=== PATIENT | male | born 1990 | race Caucasian/White ===

== ENCOUNTER 2024-07-29 14:23 | Emergency (ER) | payer MEDICAID ==
[~2024-07-29] VITALS: Ht 182.9 cm; Wt 78.5 kg
--- NOTE | 2024-07-29 14:42 | ED.PDOC ---
HPI Comments 34 y.o male presents to the ED for a chief complaint of left sided chest pain radiating to his back that started 2 hours prior to arrival. Patient describes pain as sharp, constant, and rating a 3/10 on the pain scale. Patient denies any cardiac history, SOB, nausea, vomiting, diarrhea, abdominal pain, fever, or chills. Patient admits to using cocaine and marijuana one week ago. Additional, patient reports occasional use of alcohol and tobacco. Time Seen by MD: 14:30 Primary Care Provider: NONE Reviewed Notes: Nurses Notes, Medications, Allergies Allergies: Coded Allergies: NO KNOWN ALLERGIES (Unverified , 11/18/14) Information Source: Patient Mode of Arrival: Ambulatory Severity: Moderate Timing: Hours (2) Duration: Since onset Location: Chest (L) Radiation: Back Quality: Sharp Onset: At Rest Cardiac Risk Factors: Drugs PE Risk Factors: None History of: None Modifying Factors: Nothing Associated Signs and Symptoms: Back Pain Past Medical History PAST MEDICAL HISTORY: Denies Surgical History: Denies all surgeries Family History Family History: Unknown Social History Smoker: Cigarettes Alcohol: Occasionally Drugs: Cocaine, Marijuana Constitutional: denies: chills, diaphoresis, fatigue, fever, malaise, sweats, weakness, others EENTM: denies: blurred vision, double vision, ear bleeding, ear discharge, ear drainage, ear pain, ear ringing, eye pain, eye redness, hearing loss, mouth pain, mouth swelling, nasal discharge, nose bleeding, nose congestion, nose pain, photophobia, tearing, throat pain, throat swelling, voice changes, others Respiratory: denies: cough, hemoptysis, orthopnea, SOB at rest, shortness of breath, SOB with excertion, stridor, wheezing, others Cardiovascular: reports: chest pain; denies: dizzy spells, diaphoresis, Dyspnea on exertion, edema, irregular heart beat, left arm pain, lightheadedness, palpitations, PND, syncope, others Gastrointestinal: denies: abdomen distended, abdominal pain, blood streaked bowels, constipated, diarrhea, dysphagia, difficulty swallowing, hematemesis, melena, nausea, poor appetite, poor fluid intake, rectal bleeding, rectal pain, vomiting, others Genitourinary: denies: burning, dysuria, flank pain, frequency, hematuria, inco ntinence, penile discharge, penile sore, pain, testicle pain, testicle swelling, urgency, others Neurological: denies: dizziness, fainting, headache, left sided numbness, left sided weakness, numbness, paresthesia, pre-existing deficit, right sided numbness, right sided weakness, seizure, speech problems, tingling, tremors, weakness, others Musculoskeletal: reports: back pain; denies: gout, joint pain, joint swelling, muscle pain, muscle stiffness, neck pain, others Integumetry: denies: bruises, change in color, change in hair/nails, dryness, laceration, lesions, lumps, rash, wounds, others Allergic/Immunocompromised: denies: Difficulty Healing, Frequent Infections, Hives, Itching, others Hematologic/Lymphatic: denies: anemia, blood clots, easy bleeding, easy bruising, swollen glands, others Endocrine: denies: excessive hunger, excessive sweating, excessive thirst, excessive urination, flushing, intolerance to cold, intolerance to heat, unexplained weight gain, unexplained weight loss, others Psychiatric: denies: anxiety, bipolar disorder, depression, hopeless, panic disorder, schizophrenia, sleepless, suicidal, others All Other Systems: Reviewed and Negative Physical Exam General Appearance: No Apparent Distress HEENT: Normal ENT Inspection, Pharynx Normal, TMs Normal Neck: Full Range of Motion, Non-Tender, Normal, Normal Inspection Respiratory: Chest Non-Tender, Lungs Clear, No Accessory Muscle Use, No Respiratory Distress, Normal Breath Sounds Cardiovascular: No Edema, No JVD, No Murmur, No Gallop, Tachycardia Breast Exam: Deferred Gastrointestinal: No Organomegaly, Non Tender, No Pulsatile Mass, Normal Bowel Sounds, Soft Genitalia: Deferred Pelvic: Deferred Rectal: Deferred Extremities: No calf tenderness, Normal capillary refill, Normal inspection, Normal range of motion, Non-tender, No pedal edema Musculoskeletal : Apperance: Normal Neurologic: Alert, medical library assistant II-XII nml as Tested, No Motor Deficits, Normal Affect, Normal Mood, No Sensory Deficits Cerebellar Function: Normal Reflexes: Normal Skin: Dry, Normal Color, Warm Lymphatic: No Adenopathy EKG EKG : Pulse Rate (adult): 101 Cardiac Rhythm: ST Was a procedure done? Was a procedure done?: No CP Differential Dx Differential Diagnosis: Pulmonary Embolus Differential Diagnosis: Angina, Chest Wall Pain, Cholelithiasis, Gastritis, Pericarditis X-Ray, Labs, Meds, VS Vital Signs Date Time Temp Pulse Resp B/P (MAP) Pulse Ox O2 Delivery O2 Flow Rate FiO2 07/29/24 15:01 98.1 96 20 130/79 (96) 98 07/29/24 15:01 98.1 96 20 130/79 (96) 98 98.1 07/29/24 14:42 101 Lab Test 07/29/24 14:38 Range/Units White Blood Count 12.5 H 4.4-10.8 10^3/uL Red Blood Count 4.48 L 4.5-5.90 10^6/uL Hemoglobin 15.6 13.5-17.5 g/dL Hematocrit 44.3 41.0-53.0 % Mean Corpuscular Volume 99.0 80.0-100.0 fL Mean Corpuscular Hemoglobin 34.7 H 28.0-32.0 pg Mean Corpuscular Hemoglobin Concent 35.1 32.0-36.0 g/dL Red Cell Distribution Width 13.5 11.8-14.3 % Platelet Count 192 140-450 10^3/uL Mean Platelet Volume 9.0 6.9-10.8 fL Neutrophils (%) (Auto) 84.1 H 37.0-80.0 % Lymphocytes (%) (Auto) 12.4 10.0-50.0 % Monocytes (%) (Auto) 2.8 0.0-12.0 % Eosinophils (%) (Auto) 0.3 0.0-7.0 % Basophils (%) (Auto) 0.4 0.0-2.0 % Neutrophils # (Auto) 10.5 H 1.6-8.6 10 ^3/uL Lymphocytes # (Auto) 1.5 0.4-5.4 10 ^3/uL Monocytes # (Auto) 0.4 0-1.3 10 ^3/uL Eosinophils # (Auto) 0 0-0.8 10 ^3/uL Basophils # (Auto) 0.1 0-0.2 10 ^3/uL Nucleated Red Blood Cells 0.1 % Sodium Level Pending Potassium Level Pending Chloride Level Pending Carbon Dioxide Level Pending Anion Gap Pending Blood Urea Nitrogen Pending Creatinine Pending Glomerular Filtration Rate Calc Pending BUN/Creatinine Ratio Pending Serum Glucose Pending Calcium Level Pending Troponin I High Sensitivity 21 </=54 ng/L The CBC shows an elevated white blood cell count of 12.5 The rest of the CBC is within normal limits The chemistry panel is within normal limits The troponin level is negative The patient was given substance abuse counseling The chest x-ray is negative The patient was being discharged with a diagnosis of cocaine induced chest pain The patient understands and agrees with the management The patient will return to the emergency department's condition worsens. Images Reviewed?: Images reviewed and evaluated by me Time of 1ST Reevaluation: 14:40 Reevaluation 1ST: Unchanged Patient Education/Counseling: Diagnosis, Treatment, Prognosis, Need For Follow Up Family Education/Counseling: No Family Present Departure 1 Departure Time of Disposition: 15:41 Impression: Primary Impression: Acute chest pain Additional Impression: Cocaine use Disposition: 01 HOME / SELF CARE / HOMELESS Condition: Fair Discharged With: Self Critical Care Note Critical Care Time?: No Stability Stability form required: No Heart Score Heart Score: Heart Score Response (Comments) Value History Slightly Suspicious 0 EKG Normal 0 Age <45 0 Risk Factors No known risk factors 0 Troponin Normal limit 0 Total 0 I personally scribed for KITTY HURD MD ([email or web address]) on 07/29/24 at 14:42. Electronically submitted by Arabella Chambers ([facility]). KITTY HURD MD Jul 29, 2024 14:42
[2024-07-29 15:01] VITALS: BP 130/79; RESP 20; TEMP 98.1; O2SAT 98
[2024-07-29 15:08] LABS: Basophils # (auto) 0.1 10 ^3/uL (0-0.2); Basophils % (auto) 0.4 % (0.0-2.0); Eosinophils # (auto) 0 10 ^3/uL (0-0.8); Monocytes # (auto) 0.4 10 ^3/uL (0-1.3); Neutrophils # (auto) 10.5 10 ^3/uL (1.6-8.6); White Blood Cell 12.5 10^3/uL (4.4-10.8)
[2024-07-29 15:09] LABS: Chloride 108 mmol/L (98-107); Eosinophils % (auto) 0.3 % (0.0-7.0); Hematocrit 44.3 % (41.0-53.0); Hemoglobin 15.6 g/dL (13.5-17.5); Lymphocytes # (auto) 1.5 10 ^3/uL (0.4-5.4); Lymphocytes % (auto) 12.4 % (10.0-50.0); Mean Corpuscular Hemoglobin 34.7 pg (28.0-32.0); Mean Corpuscular Hgb Conc. 35.1 g/dL (32.0-36.0); Monocytes % (auto) 2.8 % (0.0-12.0); Neutrophils % (auto) 84.1 % (37.0-80.0); Nucleated Red Blood Cells % 0.1 %; Platelet Count (auto) 192 10^3/uL (140-450); Potassium 3.8 mmol/L (3.5-5.1); Red Blood Cells 4.48 10^6/uL (4.5-5.90); Red Cell Distribution Width 13.5 % (11.8-14.3); Sodium 141 mmol/L (136-145)
[2024-07-29 15:10] LABS: Anion Gap 6 (5-15); Carbon Dioxide 27 mmol/L (20-31)
[2024-07-29 15:11] LABS: Calcium 9.9 mg/dL (8.7-10.4)
--- NOTE | 2024-07-29 15:13 | DVH ---
XY CHEST TWO VIEWS ROUTINE CLINICAL HISTORY: CP COMPARISON: None TECHNIQUE: Frontal and lateral view of the chest was obtained FINDINGS: Lines and Tubes: None Lungs: No focal consolidation. Pleura: No effusion. No pneumothorax. Cardiomediastinal contours: Unremarkable Bones: No acute osseous abnormality. IMPRESSION: 1. No radiographic evidence of acute cardiopulmonary disease. HHS:Y
[2024-07-29 15:15] LABS: BUN/Creatinine Ratio 12.8 (10.0-20.0); Blood Urea Nitrogen 10 mg/dL (9-23); Glucose 102 mg/dL (74-106)
[2024-07-29 15:23] VITALS: PULSE 70
[2024-07-29] MEDS: ASPirin 81 mg TAB PO ONE (16:13)
--- NOTE | 2024-08-01 08:17 | ECG ---
[facility] Test Date: 2024-07-29 Test Time: 15:23:44 Pat Name: PEYMAN LIN Department: ED Room: Gender: M Recreation Leader: DAVIN : 1990 Requested By: KITTY HURD Order Number: [id number] Reading MD: Measurements Intervals [place] Rate: 70 P: 80 HI: 128 QRS: 85 QRSD: 79 T: 35 QT: 370 QTc: 400 Interpretive Statements Sinus rhythm ST elev, probable normal early repol pattern Please click the below link to view image of tracing.
--- NOTE | 2024-08-01 15:14 | ECG ---
[facility] Test Date: 2024-07-29 Test Time: 14:28:35 Pat Name: PEYMAN LIN Department: ER Room: Gender: M Rail Washer: NGHIA : 1990 Requested By: KITTY HURD Order Number: [id number] Reading MD: Measurements Intervals [place] Rate: 101 P: 84 W[place]: 130 QRS: 89 QRSD: 80 T: 20 QT: 332 QTc: 431 Interpretive Statements Sinus tachycardia Consider right atrial enlargement Please click the below link to view image of tracing.
== END 2024-07-29 16:19 | disposition home or self-care (01) ==
LOC: ER 14:23
DX: R07.89 Other chest pain (principal); F17.210 Nicotine dependence, cigarettes, uncomplicated; F14.10 Cocaine abuse, uncomplicated; F12.10 Cannabis abuse, uncomplicated; D72.829 Elevated white blood cell count, unspecified
CPT/HCPCS: 36415; 71046; 80048; 84484; 85025; 93005

== ENCOUNTER 2024-11-28 16:46 | Emergency (ER) | payer MEDICAID ==
[~2024-11-28] VITALS: Ht 182.9 cm; Wt 82.6 kg
--- NOTE | 2024-11-28 17:31 | DVH ---
CLINICAL INDICATION: trauma TECHNIQUE: XY L WRIST 2 VIEW XRAY Comparison: None FINDINGS/IMPRESSION: : There is a fracture of the 5th metacarpal head which appears intra-articular in nature. Soft tissues are unremarkable.
--- NOTE | 2024-11-28 18:00 | ED.PDOC ---
Musculoskeletal HPI Comments 34 y.o male presents to the ED for a chief complaint of left fifth digit and wrist pain s/p punching a wooden chair. Patient presents with swelling and limited ROM to fifth digit. Patient denies any other symptoms or pain. He has no medical, surgical history or allergies. Admits to alcohol, marijuana and tobacco use. Chief Complaint: Upper Extremity Time Seen by MD: 17:50 Primary Care Provider: NONE Reviewed Notes: Nurses Notes, Medications, Allergies Allergies: Coded Allergies: NO KNOWN ALLERGIES (Unverified , 11/18/14) Information Source: Patient Mode of Arrival: Ambulatory Location: Left Extremity Location: Hand Severity: Moderate Able to Move Extremity: Yes Bear Weight: Limited Pain: Moderate Hand Dominance: Left Mechanism: Blunt Trauma Circumstances: Other Onset of Symptoms: After Trauma Symptoms: Swelling, Pain Associated signs and symptoms: Wrist pain Past Medical History PAST MEDICAL HISTORY: Denies Surgical History: Denies all surgeries Family History Family History: Unknown Social History Smoker: Cigarettes Alcohol: Occasionally Drugs: Cocaine, Marijuana Lives In: Home Constitutional: denies: chills, diaphoresis, fatigue, fever, malaise, sweats, weakness, others EENTM: denies: blurred vision, double vision, ear bleeding, ear discharge, ear drainage, ear pain, ear ringing, eye pain, eye redness, hearing loss, mouth p ain, mouth swelling, nasal discharge, nose bleeding, nose congestion, nose pain, photophobia, tearing, throat pain, throat swelling, voice changes, others Respiratory: denies: cough, hemoptysis, orthopnea, SOB at rest, shortness of br eath, SOB with excertion, stridor, wheezing, others Cardiovascular: denies: chest pain, dizzy spells, diaphoresis, Dyspnea on exertion, edema, irregular heart beat, left arm pain, lightheadedness, palpitations, PND, syncope, others Gastrointestinal: denies: abdomen distended, abdominal pain, blood streaked bowels, constipated, diarrhea, dysphagia, difficulty swallowing, hematemesis, melena, nausea, poor appetite, poor fluid intake, rectal bleeding, rectal pain, vomiting, others Genitourinary: denies: burning, dysuria, flank pain, frequency, hematuria, incontinence, penile discharge, penile sore, pain, testicle pain, testicle swelling, urgency, others Neurological: denies: dizziness, fainting, headache, left sided numbness, left sided weakness, numbness, paresthesia, pre-existing deficit, right sided numbness, right sided weakness, seizure, speech problems, tingling, tremors, weakness, others Musculoskeletal: reports: others (left 5th digit and wrist pain ); denies: back pain, gout, joint pain, joint swelling, muscle pain, muscle stiffness, neck pain Integumetry: denies: bruises, change in color, change in hair/nails, dryness, laceration, lesions, lumps, rash, wounds, others Allergic/Immunocompromised: denies: Difficulty Healing, Frequent Infections, Hives, Itching, others Hematologic/Lymphatic: denies: anemia, blood clots, easy bleeding, easy bruising, swollen glands, others Endocrine: denies: excessive hunger, excessive sweating, excessive thirst, excessive urination, flushing, intolerance to cold, intolerance to heat, unexplained weight gain, unexplained weight loss, others Psychiatric: denies: anxiety, bipolar disorder, depression, hopeless, panic disorder, schizophrenia, sleepless, suicidal, others All Other Systems: Reviewed and Negative Physical Exam General Appearance: Mild Distress HEENT: Normal ENT Inspection, Pharynx Normal, TMs Normal Neck: Full Range of Motion, Non-Tender, Normal, Normal Inspection Respiratory: Chest Non-Tender, Lungs Clear, No Accessory Muscle Use, No Respiratory Distress, Normal Breath Sounds Cardiovascular: No Edema, No JVD, No Murmur, No Gallop, Normal Peripheral Pulses, Regular Rate/Rhythm Breast Exam: Deferred Gastrointestinal: No Organomegaly, Non Tender, No Pulsatile Mass, Normal Bowel Sounds, Soft Genitalia: Deferred Pelvic: Deferred Rectal: Deferred Extremities: Normal capillary refill, No pedal edema, Swelling (Swelling to the left hand 5th digit), Tender Musculoskeletal : Apperance: Normal Neurologic: Alert, tar boiler II-XII nml as Tested, No Motor Deficits, Normal Affect, Normal Mood, No Sensory Deficits Cerebellar Function: Normal Reflexes: Normal Skin: Dry, Normal Color, Warm Lymphatic: No Adenopathy Was a procedure done? Was a procedure done?: No Differential Diagnosis EXT Differential Diagnosis: Fracture, Sprain, Dislocation, Strain X-Ray, Labs, Meds, VS Vital Signs Date Time Temp Pulse Resp B/P (MAP) Pulse Ox O2 Delivery O2 Flow Rate FiO2 3/10/25 16:55 98.0 88 16 142/90 (107) 95 XY L WRIST 2 VIEW XRAY There is a fracture of the 5th metacarpal head which appears intra-articular in nature. Soft tissues are unremarkable. The patient was being placed in a boxer's splint. The patient was also being placed in a sling The patient was discharged and will follow up with the primary care doctor The patient will return to the emergency department's condition worsens The diagnosis is left hand a boxer's fracture Images Reviewed?: Images reviewed and evaluated by me Time of 1ST Reevaluation: 17:56 Reevaluation 1ST: Unchanged Patient Education/Counseling: Diagnosis, Treatment, Prognosis, Need For Follow Up Family Education/Counseling: Diagnosis, Treatment, Prognosis, Need For Follow Up Departure 1 Departure Time of Disposition: 18:16 Impression: Primary Impression: Fracture of fifth metacarpal bone of left hand Qualified Codes: S62.327A - Displaced fracture of shaft of fifth metacarpal bone, left hand, initial encounter for closed fracture Disposition: 01 HOME / SELF CARE / HOMELESS Condition: Fair Discharged With: Self Critical Care Note Critical Care Time?: No Stability Stability form required: No I personally scribed for KITTY HURD MD ([email or web address]) on 11/28/24 at 18:00. Electronically submitted by Arabella Chambers ([facility]). I personally scribed for KITTY HURD MD ([email or web address]) on 11/28/24 at 18:00. Electronically submitted by Arabella Chambers ([facility]). KITTY HURD MD Nov 28, 2024 18:00
[2024-11-28 18:45] VITALS: PULSE 64; RESP 16; O2SAT 96
[2024-11-28 18:47] VITALS: BP 133/64; PULSE 64; RESP 16; O2SAT 94
== END 2024-11-28 19:03 | disposition home or self-care (01) ==
LOC: ER 16:46
DX: S62.397A Other fracture of fifth metacarpal bone, left hand, initial encounter for closed fracture (principal); F17.210 Nicotine dependence, cigarettes, uncomplicated; F12.90 Cannabis use, unspecified, uncomplicated; F15.90 Other stimulant use, unspecified, uncomplicated; X58.XXXA Exposure to other specified factors, initial encounter; Y93.89 Activity, other specified; Y92.89 Other specified places as the place of occurrence of the external cause; Y99.8 Other external cause status
CPT/HCPCS: 29125; 73100

== ENCOUNTER 2024-12-12 18:37 | Emergency (ER) | payer MEDICAID ==
[~2024-12-12] VITALS: Ht 182.9 cm; Wt 80.0 kg
--- NOTE | 2024-12-12 18:46 | ECG ---
[facility] Test Date: 2024-12-12 Test Time: 18:43:56 Pat Name: PEYMAN LIN Department: ED Room: Gender: M Construction Manager: SANDY : 1990 Requested By: BETH SMITH Order Number: [id number] Reading MD: Shiv Esparza Measurements Intervals [place] Rate: 89 P: 76 AL: 122 QRS: 92 QRSD: 82 T: 10 QT: 343 QTc: 418 Interpretive Statements Sinus rhythm Borderline right axis deviation ST elev, probable normal early repol pattern Electronically Signed On 12-15-2024 13:59:15 PDT by Shiv Esparza Please click the below link to view image of tracing.
--- NOTE | 2024-12-12 18:53 | ED.PDOC ---
History of Present Illness HPI Comments 34 y/o M is BIBA for c/o non-radiating, sternal chest-wall pain s/p mechanical fall and injury, today. Patient endorses on being unable to tolerate "aching" pain that he developed after tripping on a chair, with no prior symptoms, and landing and hitting his sternum against a couch arm at home, last night. He refutes any loss of consciousness or sustaining any additional injuries then along with any pain medication use following incident. Patient states on pain worsening whenever taking deep breathes in addition to hearing a "pop" whenever twisting or turning. He denies any shortness of breath, numbness, tingling, weakness, or other associated symptoms or modifying factors at this time. Chief Complaint: Chest Wall Injury Time Seen by MD: 18:40 Primary Care Provider: NONE Reviewed Notes: Nurses Notes, Coding Compliance Specialist Notes, Medications, Allergies Allergies: Coded Allergies: NO KNOWN ALLERGIES (Unverified , 11/18/14) Information Source: Patient Mode of Arrival: EMS Severity: Moderate Timing: Hours Duration: Since onset Prehospital treatment: 12 Lead EKG, Escrow Assistant Past Medical History PAST MEDICAL HISTORY: Denies Surgical History: Denies all surgeries Family History Family History: Unknown Social History Smoker: Cigarettes Alcohol: Occasionally Drugs: Cocaine, Marijuana Lives In: Home All Other Systems: Reviewed and Negative (Comprehensive systems review obtained and negative except for what is stated in the HPI.) Physical Exam General Appearance: No Apparent Distress, Normal HEENT: Normal ENT Inspection, Pharynx Normal, TMs Normal Neck: Full Range of Motion, Non-Tender, Normal, Normal Inspection Respiratory: Chest Non-Tender, Lungs Clear, No Accessory Muscle Use, No Respiratory Distress, Normal Breath Sounds Cardiovascular: No Edema, No JVD, No Murmur, No Gallop, Normal Peripheral Pulses, Regular Rate/Rhythm Breast Exam: Deferred Gastrointestinal: No Organomegaly, Non Tender, No Pulsatile Mass, Normal Bowel Sounds, Soft Genitalia: Deferred Pelvic: Deferred Rectal: Deferred Extremities: No calf tenderness, Normal capillary refill, Normal inspection, Normal range of motion, Non-tender, No pedal edema Musculoskeletal : Extremity Location: Chest Apperance: Normal, Tenderness Neurologic: Alert, english drawer II-XII nml as Tested, No Motor Deficits, Normal Affect, Normal Mood, No Sensory Deficits Cerebellar Function: Normal Reflexes: Normal Skin: Dry, Normal Color, Warm Lymphatic: No Adenopathy Was a procedure done? Was a procedure done?: No EKG EKG : Pulse Rate (adult): 89 [place]: Normal Cardiac Rhythm: NSR Block: None Hypertrophy: None ST: Normal Differential Dx Considerations may include: musculoskeletal pain, contusions, bruising X-Ray, Labs, Meds, VS Vital Signs Date Time Temp Pulse Resp B/P (MAP) Pulse Ox O2 Delivery O2 Flow Rate FiO2 12/12/24 18:53 89 12/12/24 18:43 89 12/12/24 18:40 99.1 93 18 154/87 (109) 95 99.1 [place] [address] Ph: [phone] DIAGNOSTIC IMAGING Diagnostic Imaging Report : [id number] Signed PATIENT: PEYMAN LIN ACCT: [id number] UNIT: [id number] : 1990 LOC: ER ROOM / BED: / AGE / SEX: 34 / M ADM STATUS: REG ER SERVICE 46 ORDERING PHYSICIAN: BETH SMITH MD PROCEDURE(s): CXR2 - CHEST TWO VIEWS ROUTINE REASON: fall, chest wall pain ORDER NUMBER(s): [id number], ACCESSION NUMBER(s): [id number] CHEST RADIOGRAPH Indication: fall, chest wall pain Technique: Frontal and lateral view of the chest was obtained Comparison: XY CHEST TWO VIEWS ROUTINE on DOS: 07/29/24 FINDINGS: Lines and Tubes: None Lungs: Clear Pleura: No effusion. No pneumothorax. Cardiomediastinal contours: Unremarkable Bones: Unremarkable IMPRESSION: No evidence of acute disease. ATED BY: ROJAS CAMP MD DICTATED DATE/TIME: 12/12/241907 SIGNED BY: ROJAS CAMP MD SIGNED DATE/TIME: 12/12/241907 CC: Time of 1ST Reevaluation: 19:10 Reevaluation 1ST: Improved Patient Education/Counseling: Diagnosis, Treatment Family Education/Counseling: No Family Present Departure 1 Departure Time of Disposition: 19:44 (Patient has a chest wall contusion after fall. No concern for ACS) Impression: Primary Impression: Chest wall pain Additional Impression: Chest wall contusion Qualified Codes: S20.219A - Contusion of unspecified front wall of thorax, initial encounter Disposition: HOME / SELF CARE / HOMELESS Condition: Stable Additional Instructions: Fortunately x-rays were benign. You did not break your ribs however you probably bruised them. For pain you can take the followinam: Ibuprofen 400mg with food Noon: Acetaminophen 1000mg 4pm: Ibuprofen 400mg with food 8pm: Acetaminophen 1000mg You should follow up with your regular doctor within one week to ensure you are doing better. If your symptoms worsen or you have any other concerns then please return to the ER. Discharged With: Self Critical Care Note Critical Care Time?: No Stability Stability form required: No Heart Score Heart Score: Heart Score Response (Comments) Value History N/A 0 EKG N/A 0 Age N/A 0 Risk Factors N/A 0 Troponin N/A 0 Total 0 I personally scribed for BETH SMITH MD ([email or web address]) on 12/12/24 at 18:53. Electronically submitted by Fabio Frias ([email or web address]). I personally scribed for BETH SMITH MD ([email or web address]) on 12/12/24 at 18:54. Electronically submitted by Fabio Frias ([email or web address]). I personally scribed for BETH SMITH MD ([email or web address]) on 12/12/24 at 19:19. Electronically submitted by Fabio Frias ([email or web address]). BETH SMITH MD Dec 12, 2024 18:53
--- NOTE | 2024-12-12 19:11 | DVH ---
CHEST RADIOGRAPH Indication: fall, chest wall pain Technique: Frontal and lateral view of the chest was obtained Comparison: XY CHEST TWO VIEWS ROUTINE on DOS: 07/29/24 FINDINGS: Lines and Tubes: None Lungs: Clear Pleura: No effusion. No pneumothorax. Cardiomediastinal contours: Unremarkable Bones: Unremarkable IMPRESSION: No evidence of acute disease.
[2024-12-12] MEDS: HYDROcodone-ACET 5/325MG TAB PO ONE (19:45)
[2024-12-12 22:19] VITALS: BP 148/87; PULSE 75; RESP 19; TEMP 98.3; O2SAT 96
== END 2024-12-12 22:21 | disposition home or self-care (01) ==
LOC: EDBD 18:37 → ER 18:37
DX: S20.219A Contusion of unspecified front wall of thorax, initial encounter (principal); R07.89 Other chest pain; F17.210 Nicotine dependence, cigarettes, uncomplicated; F12.90 Cannabis use, unspecified, uncomplicated; W01.190A Fall on same level from slipping, tripping and stumbling with subsequent striking against furniture, initial encounter; Y93.89 Activity, other specified; Y92.009 Unspecified place in unspecified non-institutional (private) residence as the place of occurrence of the external cause; Y99.8 Other external cause status
CPT/HCPCS: 71046; 93005